=== PATIENT | female | born 1970 ===

== ENCOUNTER 2017-09-18 19:35 | Emergency (ER) | payer MEDICAID ==
[2017-09-18] MEDS ORDERED: Sodium Chloride 0.9% 1,000 ML IV STA (20:08)
--- NOTE | 2017-09-18 20:32 | ED PDOC ---
HPI: Abdomen Time Seen by Provider: 09/18/17 19:54 Chief Complaint (Nursing): Abdominal Pain Chief Complaint (Provider): Abdominal Pain History Per: Patient History/Exam Limitations: no limitations Onset/Duration Of Symptoms: Days (x2), Worse Since (onset), Other (constant) Location Of Pain/Discomfort: RLQ Additional Complaint(s): 47 year old female presents to the ED complaining of constant RLQ abdominal pain which started 2 days ago and is worsening since onset. Pain radiates to the rest of the abdomen and back and is similar to previous episodes. Patient reports she had multiple episodes of nonbloody diarrhea and has had multiple abdominal surgeries in the past. She denies nausea, vomiting, antibiotic use, recent travel, sick contacts, or urinary symptoms. 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) - Family History Family History: States: No Known Family Hx - Social History Current smoker - smoking cessation education provided: No Alcohol: None Drugs: Denies - Immunization History Hx Tetanus Toxoid Vaccination: No Hx Influenza Vaccination: Yes Hx Pneumococcal Vaccination: Yes - Home Medications Home Medications: Ambulatory Orders Medication Instructions Recorded Nortriptyline Hydrochloride 75 mg PO HS 10/25/12 [Nortriptyline] SUMAtriptan [Imitrex Tab] 100 mg PO PRN PRN 10/25/12 Topiramate 50 mg PO BID 10/25/12 Acetaminophen/Oxycodone Hydr 1 tab PO TID PRN #6 tab 01/15/14 [Percocet 325 mg-5 mg] Ibuprofen [Ibuprofen] 800 mg PO TID PRN 03/11/14 Lactulose [Generlac] 15 ml PO DAILY 03/11/14 Sumatriptan [Sumatriptan] 20 mg PO ASDIR 03/11/14 Topiramate [Topamax] 25 mg PO BID 03/11/14 Zolpidem Tartrate [Ambien] 10 mg PO HS 03/11/14 Ibuprofen [Motrin Tab] 800 mg PO TID PRN #30 tab 12/12/14 Acetaminophen [Tylenol Extra 1,000 mg PO Q6 PRN #100 tablet 09/18/17 Strength] Dicyclomine [Bentyl] 20 mg PO QID PRN #20 tab 09/18/17 - Allergies Allergies/Adverse Reactions: Allergies Allergy/AdvReac Type Severity Reaction Status Date / Time Iodine and Iodide Containing Allergy SHORTNESS Verified 09/18/17 19:47 Produc OF BREATH cat scan dye Allergy SHORTNESS Uncoded 11/12/13 17:01 OF BREATH Review of Systems ROS Statement: Except As Marked, All Systems Reviewed And Found Negative (as per HPI) Gastrointestinal: Positive for: Abdominal Pain (RLQ radiating to the rest of the abdomen and back), Diarrhea. Negative for: Nausea, Vomiting Genitourinary Female: Negative for: Dysuria, Hematuria Physical Exam - Reviewed Nursing Documentation Reviewed: Yes Vital Signs Reviewed: Yes - Physical Exam Appears: Positive for: Uncomfortable, In Acute Distress Head Exam: Positive for: ATRAUMATIC, NORMOCEPHALIC Skin: Positive for: Warm, Dry Eye Exam: Positive for: EOMI, PERRL ENT: Positive for: Other (dry mucus membranes) Neck: Positive for: Painless ROM, Supple Cardiovascular/Chest: Positive for: Regular Rate, Rhythm, Chest Non Tender. Negative for: Murmur Respiratory: Positive for: Normal Breath Sounds. Negative for: Respiratory Distress Gastrointestinal/Abdominal: Positive for: Tenderness (RLQ tenderness to palpation), Other (Pain seems out of proportion to exam). Negative for: Mass, Guarding, Rebound Back: Positive for: Normal Inspection. Negative for: L CVA Tenderness, R CVA Tenderness Extremity: Positive for: Normal ROM. Negative for: Deformity Lymphatic: Negative for: Adenopathy Neurologic/Psych: Positive for: Alert. Negative for: Motor/Sensory Deficits - Laboratory Results Result Diagrams: 09/18/17 20:40 09/18/17 20:40 - ECG O2 Sat by Pulse Oximetry: 97 (RA) Pulse Ox Interpretation: Normal Medical Decision Making Medical Decision Making: Initial Impression: Abdominal Pain. Differentials include but not limited to bowel obstruction, hernia, mesenteric ischemia, colitis, enteritis Initial Plan: CT abd/pelvis CMP Drug screen Lact acid Lipase ED urine ED urine dipstick CBC Partial thromboplastin Prothrombin Bentyl 20mg PO Sodium chloride 1000mL IV Toradol 30mg IV Tylenol 975mg PO Reviewed previous charts. In 2015, patient had multiple visits for abdominal pain and at that time, she was on chronic pain medications. Patient reports she does not take pain medications anymore. She had multiple admissions at that time for small bowel obstruction. 22:16 CT abd/pelvis FINDINGS: Limitations: This study is limited due to motion artifacts and lack of oral contrast. Lower thorax: Linear scar in the right middle lobe. Stable 3 mm oval peripheral nodule in the lateral aspect of the left lower lobe. Implantable device in the medial left breast. ABDOMEN: Liver: Normal. No mass. Gallbladder and bile ducts: There are cholecystectomy clips. Mild common bile duct dilatation, stable. Pancreas: Normal. No ductal dilation. Spleen: Normal. No splenomegaly. Adrenals: Normal. No mass. Kidneys and ureters: No hydronephrosis or calculus. Stomach and bowel: Anastomotic pavan in a loop of small bowel in the right lower quadrant. Fluid-filled small bowel loops. The distal small bowel loops are distended. Air- fluid levels in the right colon. Appendix: Non visualization of the appendix correlating with history of appendectomy. PELVIS: Bladder: The bladder is collapsed. No calculus. Reproductive: Lobular uterus with evidence of prior section. The ovaries are difficult to separate from the fluid-filled small bowel loops. ABDOMEN and PELVIS: Intraperitoneal space: Normal. No free air. No significant fluid collection. Bones/joints: No acute fracture. No dislocation. Soft tissues: Ventral hernia repair. Vasculature: Small atherosclerotic calcifications are noted in the aorta. Lymph nodes: Normal. No enlarged lymph nodes. IMPRESSION: 1. Fluid distended distal small bowel. It may be due to ileus. 2. 3 mm stable left lower lung nodule. 3. Cholecystectomy, small bowel resection and ventral hernia repair 22:24 Upon reevaluation, patient is feeling better. Patient initially declined Tylenol and Bentyl tablets because she thought it would upset her gastritis. Patient was explained that the medications tend to improve abdominal pain and don't worsen gastritis. Patient is now amenable to trying medications. She is already feeling better from IV fluids and IV Toradol. Scribe Attestation: Documented by Raphael Rodriguez acting as a scribe for Consuelo Norton MD. Provider Scribe Attestation: All medical record entries made by the Scribe were at my direction and personally dictated by me. I have reviewed the chart and agree that the record accurately reflects my personal performance of the history, physical exam, medical decision making, and the department course for this patient. I have also personally directed, reviewed, and agree with the discharge instructions and disposition. Disposition - Clinical Impression Clinical Impression: Abdominal pain - Disposition Referrals: Huseyin Kim MD [Primary Care Provider] - Khurram Weinberg [Staff Provider] - Disposition: Routine/Home Disposition Time: 22:20 Condition: IMPROVED Additional Instructions: ZOILA MUCHO LIQUIDOS Y COME BLANDITO COMIDOS VISITA DR GUERRA Y DR WEINBERG EN 1-2 BURNS A CHEQAR DE NUEVO MARICARMEN MEDICAMENTOS A RECETO POR DOLOR. Prescriptions: Acetaminophen [Tylenol Extra Strength] 1,000 mg PO Q6 PRN #100 tablet PRN Reason: FEVER OR PAIN Dicyclomine [Bentyl] 20 mg PO QID PRN #20 tab PRN Reason: abdominal pain Instructions: Acute Abdomen (Belly Pain), Adult (DC) Print Language: UKRAINIAN
[2017-09-18 20:51] LABS: BASO % 0.2 % (0.0-2.0); EOS % 0.7 % (0.0-4.0); HEMOGLOBIN 13.8 g/dL (12.0-16.0); INR 1.1 (0.9-1.2); LYMPH # 1.2 K/uL (1.0-4.3); LYMPH % 15.7 % (20.0-40.0); MEAN CORPUSCULAR HEMOGLOBIN 31.2 pg (27.0-31.0); MEAN CORPUSCULAR HGB CONC 33.2 g/dL (33.0-37.0); MEAN PLATELET VOLUME 9.1 fl (7.2-11.7); MONO # 0.5 K/uL (0.0-0.8); MONO % 6.5 % (0.0-10.0); NEUT # 5.7 K/uL (1.8-7.0); NEUT % 76.9 % (50.0-75.0); NRBC % 0.1 % (0.0-0.0); PARTIAL THROMBOPLASTIN TIME 30.5 Seconds (25.6-37.1); PROTHROMBIN TIME 11.9 Seconds (9.8-13.1); RBC 4.42 Mil/uL (3.80-5.20); RED CELL DISTRIBUTION WIDTH 12.9 % (11.5-14.5); WHITE BLOOD COUNT 7.3 K/uL (4.8-10.8)
[2017-09-18 20:56] LABS: ALB/GLOB RATIO 1.3 (1.0-2.1); ALBUMIN 4.5 g/dL (3.5-5.0); ALT/SGPT 55 U/L (9-52); AST/SGOT 128 U/L (14-36); BLOOD UREA NITROGEN 19 mg/dl (7-17); CALCIUM 9.2 mg/dL (8.4-10.2); GFR AFRICAN-AMERICAN > 60; GFR NON-AFRICAN AMERICAN > 60; LIPASE 123 U/L (23-300)
[2017-09-18 21:40] LABS: BARBITURATES, UR NEGATIVE (NEGATIVE); BENZODIAZEPINES, UR NEGATIVE (NEGATIVE); OPIATES, UR NEGATIVE (NEGATIVE); PHENCYCLIDINE, UR NEGATIVE (NEGATIVE)
[2017-09-18 23:58] VITALS: PULSE 77; RESP 18; TEMP 97.6
[2017-09-19 00:12] VITALS: BP 97/55
--- NOTE | 2017-09-19 11:14 | CT ---
PROCEDURE: CT Abdomen and Pelvis without contrast. HISTORY: abd pain h/o obstruction COMPARISON: 12/12/2014 TECHNIQUE: Contiguous axial images of the abdomen and pelvis. No IV or oral contrast given. Coronal and Sagittal reformats generated. Please note that due to lack of intravenous and oral contrast, evaluation of soft tissue structures and bowel is limited. Radiation dose: Total exam DLP = 690.17 mGy-cm. This CT exam was performed using one or more of the following dose reduction techniques: Automated exposure control, adjustment of the mA and/or kV according to patient size, and/or use of iterative reconstruction technique. FINDINGS: LOWER THORAX: 3 millimeter left lower lobe nodule. Mild bibasilar atelectatic changes noted. LIVER: Unremarkable. No gross lesion or ductal dilatation. GALLBLADDER AND BILE DUCTS: Gallbladder not seen. Surgical clips in the right upper quadrant. Minimal dilatation of the intrahepatic and extrahepatic bile ducts likely sequela of prior cholecystectomy. PANCREAS: Unremarkable. No mass. No ductal dilatation. SPLEEN: Unremarkable. No splenomegaly. ADRENALS: Unremarkable. KIDNEYS AND URETERS: Unremarkable. No stone or hydronephrosis. BLADDER: Near completely collapsed limiting evaluation. REPRODUCTIVE: Please note that evaluation of gynecologic organs is not optimal on CT imaging. APPENDIX: Not visualized. No CT evidence of acute appendicitis. BOWEL: No bowel obstruction. Enteric anastomosis in the pelvis. PERITONEUM: Unremarkable. No fluid collection. No free air. LYMPH NODES: Unremarkable. No enlarged lymph nodes. VASCULATURE: Unremarkable. No aortic aneurysm. BONES: No fracture or destructive lesion. OTHER FINDINGS: Calcifications noted in the right breast. Correlation with mammography recommended. Loop recorder noted in the anterior chest on the left. IMPRESSION: No bowel obstruction. Prior enteric anastomosis in the pelvis. Minimal dilatation of the distal small bowel. Please note that evaluation of bowel otherwise is limited due to lack of IV and oral contrast. Calcification noted in the right breast. Correlation with mammography recommended. 3 millimeter nodule in the left lower lung. 6-[address] should be obtained to evaluate for change in characteristics. Please note that this report is in general agreement with the preliminary report provided by [facility].
[2017-09-19 14:17] VITALS: O2SAT 97
== END 2017-09-19 00:20 | disposition home or self-care (01) ==
LOC: H.ER 19:35
DX: R10.31 Right lower quadrant pain (principal); R19.7 Diarrhea, unspecified; E78.00 Pure hypercholesterolemia, unspecified; K63.89 Other specified diseases of intestine; R91.1 Solitary pulmonary nodule; K29.70 Gastritis, unspecified, without bleeding
CPT/HCPCS: 74176; 80053; 80324; 80345; 80346; 80349; 80353; 80358; 80361; 81025; 83605; 83690; 83992; 85025; 85610; 85730; 96374; 99283; J1885; J7030

== ENCOUNTER 2017-10-20 19:13 | Emergency (ER) | payer MEDICAID ==
[2017-10-20 19:34] VITALS: BP 125/78; RESP 18
[2017-10-20] MEDS ORDERED: Sodium Chloride 0.9% 1,000 ML IV STA (19:55)
--- NOTE | 2017-10-20 20:00 | ED PDOC ---
HPI: Abdomen Time Seen by Provider: 10/20/17 19:41 Chief Complaint (Nursing): Abdominal Pain Chief Complaint (Provider): Abd pain History Per: Patient History/Exam Limitations: no limitations Onset/Duration Of Symptoms: Days (2 weeks) Additional Complaint(s): Pt. with abd pain diffuse. Ongoing for years. Had exacerbation 2 weeks ago. Seen by Rin 2 week ago for the pain and had neg CT. Here as pain still present. She tried bentyl with no relief. Also has diarrhea, nonbloody. No weakness, chest pain, dyspnea, back pain, dysuria. No leg pain. No new food or drinks. No nausea, vomit, diarrhea. Past Medical History Reviewed: Nursing Documentation, Vital Signs Vital Signs: Last Vital Signs Temp 98.4 F 10/20/17 19:29 Pulse 93 H 10/20/17 19:29 Resp 18 10/20/17 19:29 BP 125/78 10/20/17 19:29 Pulse Ox 98 10/20/17 20:43 - Medical History PMH: Gastritis, Hypercholesterolemia, Migraine, Obstructive Bowel Denies: Chronic Kidney Disease - Surgical History Surgical History: Appendectomy, Cholecystectomy, Hernia Repair, - Family History Family History: States: Unknown Family Hx - Living Arrangements Living Arrangements: With Family - Immunization History Hx Tetanus Toxoid Vaccination: No Hx Influenza Vaccination: Yes Hx Pneumococcal Vaccination: Yes - Home Medications Home Medications: Ambulatory Orders Medication Instructions Recorded Nortriptyline Hydrochloride 75 mg PO HS 10/25/12 [Nortriptyline] SUMAtriptan [Imitrex Tab] 100 mg PO PRN PRN 10/25/12 Topiramate 50 mg PO BID 10/25/12 Acetaminophen/Oxycodone Hydr 1 tab PO TID PRN #6 tab 01/15/14 [Percocet 325 mg-5 mg] Ibuprofen [Ibuprofen] 800 mg PO TID PRN 03/11/14 Lactulose [Generlac] 15 ml PO DAILY 03/11/14 Sumatriptan [Sumatriptan] 20 mg PO ASDIR 03/11/14 Topiramate [Topamax] 25 mg PO BID 03/11/14 Zolpidem Tartrate [Ambien] 10 mg PO HS 03/11/14 Ibuprofen [Motrin Tab] 800 mg PO TID PRN #30 tab 12/12/14 Acetaminophen [Tylenol Extra 1,000 mg PO Q6 PRN #100 tablet 09/18/17 Strength] Dicyclomine [Bentyl] 20 mg PO QID PRN #20 tab 09/18/17 Famotidine [Pepcid] 20 mg PO DAILY PRN #6 tab 10/20/17 Ibuprofen [Motrin] 600 mg PO TID 7 Days tab 10/20/17 - Allergies Allergies/Adverse Reactions: Allergies Allergy/AdvReac Type Severity Reaction Status Date / Time Iodine and Iodide Containing Allergy SHORTNESS Verified 09/18/17 19:47 Produc OF BREATH cat scan dye Allergy SHORTNESS Uncoded 11/12/13 17:01 OF BREATH Review of Systems ROS Statement: Except As Marked, All Systems Reviewed And Found Negative Gastrointestinal: Positive for: Abdominal Pain, Diarrhea Physical Exam - Reviewed Nursing Documentation Reviewed: Yes Vital Signs Reviewed: Yes - Physical Exam Appears: Positive for: Non-toxic, No Acute Distress Head Exam: Positive for: ATRAUMATIC, NORMAL INSPECTION, NORMOCEPHALIC Skin: Positive for: Normal Color, Warm, DRY Eye Exam: Positive for: EOMI, Normal appearance, PERRL ENT: Positive for: Normal ENT Inspection Neck: Positive for: Normal, Painless ROM Cardiovascular/Chest: Positive for: Regular Rate, Rhythm Respiratory: Positive for: CNT, Normal Breath Sounds Gastrointestinal/Abdominal: Positive for: Soft, Tenderness (mild; nontender on distraction) Back: Positive for: Normal Inspection. Negative for: L CVA Tenderness, R CVA Tenderness Extremity: Positive for: Normal ROM. Negative for: Tenderness, Pedal Edema Neurologic/Psych: Positive for: Alert, Oriented - Laboratory Results Interpretation Of Abn Labs: 3.5 k - ECG O2 Sat by Pulse Oximetry: 98 Pulse Ox Interpretation: Normal - Radiology X-Ray: Interpreted by Me, Viewed By Ar X-Ray Interpretation: No Acute Disease - Progress ED Course And Treament: 2000: Multiple visits to the ER for same. Last CT done recently with no acute findings except ileus possible. Pt. had CT at [facility] and pt. has report showing no acute findings. Will get obstructive series and basic blood work. 2103: Stable. AAOx3. FU with pcp. No acute findings. Tolerated PO. Ambualted with no issues. Pain free. Disposition - Clinical Impression Clinical Impression: Abdominal pain, Hypokalemia - Patient ED Disposition Is Patient to be Admitted: No Counseled Patient/Family Regarding: Studies Performed, Diagnosis, Need For Followup, Rx Given - Disposition Referrals: [facility] [Outside] - 10/22/17 Disposition: Routine/Home Disposition Time: 21:05 Condition: STABLE Additional Instructions: Return if not better in 3 days. Prescriptions: Famotidine [Pepcid] 20 mg PO DAILY PRN #6 tab PRN Reason: Pain Ibuprofen [Motrin] 600 mg PO TID 7 Days tab Instructions: Stomach Ache and Stomach Upset, Hypokalemia (DC) Print Language: CHADIAN
[2017-10-20 20:43] LABS: BASO % 0.4 % (0.0-2.0); EOS # 0.1 K/uL (0.0-0.7); EOS % 0.9 % (0.0-4.0); HEMOGLOBIN 12.8 g/dL (12.0-16.0); LYMPH # 1.5 K/uL (1.0-4.3); LYMPH % 13.7 % (20.0-40.0); MEAN CELL VOLUME 92.3 fl (81.0-99.0); MEAN CORPUSCULAR HEMOGLOBIN 30.5 pg (27.0-31.0); MEAN CORPUSCULAR HGB CONC 33.1 g/dL (33.0-37.0); MEAN PLATELET VOLUME 8.5 fl (7.2-11.7); MONO # 0.6 K/uL (0.0-0.8); NEUT # 8.9 K/uL (1.8-7.0); RBC 4.18 Mil/uL (3.80-5.20); RED CELL DISTRIBUTION WIDTH 12.7 % (11.5-14.5); WHITE BLOOD COUNT 11.1 K/uL (4.8-10.8)
[2017-10-20 20:52] LABS: ALB/GLOB RATIO 1.3 (1.0-2.1); ALBUMIN 4.1 g/dL (3.5-5.0); ALT/SGPT 52 U/L (9-52); AST/SGOT 20 U/L (14-36); BLOOD UREA NITROGEN 13 mg/dl (7-17); CALCIUM 9.2 mg/dL (8.4-10.2); GFR AFRICAN-AMERICAN > 60; GFR NON-AFRICAN AMERICAN > 60; LIPASE 382 U/L (23-300)
[2017-10-20] MEDS ORDERED: Potassium Chloride 20 mEq ER Tab PO ONE (21:06)
[2017-10-20 21:42] VITALS: PULSE 74; TEMP 97.7; O2SAT 99
--- NOTE | 2017-10-21 08:07 | RAD ---
Date of service: 10/20/2017 HISTORY: pain COMPARISON: No prior. FINDINGS: BOWEL: Normal. No obstruction. No free air. BONES: Normal. OTHER FINDINGS: Cholecystectomy clips. IMPRESSION: No active disease.
== END 2017-10-20 21:43 | disposition home or self-care (01) ==
LOC: H.ER 19:13
DX: R10.9 Unspecified abdominal pain (principal); E87.6 Hypokalemia
CPT/HCPCS: 74022; 80053; 81025; 83690; 85025; 96361; 96374; 99284; J1885; J7030

== ENCOUNTER 2017-10-27 16:48 | Emergency (ER) | payer MEDICAID ==
[2017-10-27 17:00] VITALS: O2SAT 100
[2017-10-27] MEDS ORDERED: Sodium Chloride 0.9% 1,000 ML IV STA (17:27)
--- NOTE | 2017-10-27 17:31 | ED PDOC ---
HPI: Abdomen Time Seen by Provider: 10/27/17 17:04 Chief Complaint (Nursing): Abdominal Pain Chief Complaint (Provider): Abd pain History Per: Patient Current Symptoms Are (Timing): Still Present Additional Complaint(s): Pt. with abd pain for 1 month. Diarrhea, nonbloody with it. Nausea, no vomit with it for 1 month. No back pain, dyspnea, weakness, headaches, dizziness. No leg pain. No fever. Seen here recently and had no findings. Was dc. Went to PCP Dr. Holbrook and sent to ER at [facility] where she had a ct and blood work. States ct and blood did not show anything wrong in her abd/pelvis. She has paperwork showing this. Pt. here as symptoms still present. Has had multiple ER visits for the same here and other places. No chest pain or dyspnea. No new food or drinks. No travel. Has not seen a specialist. Past Medical History Reviewed: Nursing Documentation, Vital Signs Vital Signs: Last Vital Signs Temp 97.9 F 10/27/17 16:55 Pulse 101 H 10/27/17 16:55 Resp 20 10/27/17 16:55 BP 93/62 L 10/27/17 16:55 Pulse Ox 100 10/27/17 20:11 - Medical History PMH: Gastritis, Gall Bladder Disease, Hypercholesterolemia, Hypothyroidism, Migraine, Obstructive Bowel Denies: Chronic Kidney Disease - Surgical History Surgical History: Appendectomy, Cholecystectomy, Hernia Repair, - Family History Family History: States: Unknown Family Hx - Immunization History Hx Tetanus Toxoid Vaccination: No Hx Influenza Vaccination: Yes Hx Pneumococcal Vaccination: Yes - Home Medications Home Medications: Ambulatory Orders Medication Instructions Recorded Nortriptyline Hydrochloride 75 mg PO HS 10/25/12 [Nortriptyline] SUMAtriptan [Imitrex Tab] 100 mg PO PRN PRN 10/25/12 Topiramate 50 mg PO BID 10/25/12 Acetaminophen/Oxycodone Hydr 1 tab PO TID PRN #6 tab 01/15/14 [Percocet 325 mg-5 mg] Ibuprofen [Ibuprofen] 800 mg PO TID PRN 03/11/14 Lactulose [Generlac] 15 ml PO DAILY 03/11/14 Sumatriptan [Sumatriptan] 20 mg PO ASDIR 03/11/14 Topiramate [Topamax] 25 mg PO BID 03/11/14 Zolpidem Tartrate [Ambien] 10 mg PO HS 03/11/14 Ibuprofen [Motrin Tab] 800 mg PO TID PRN #30 tab 12/12/14 Acetaminophen [Tylenol Extra 1,000 mg PO Q6 PRN #100 tablet 09/18/17 Strength] Dicyclomine [Bentyl] 20 mg PO QID PRN #20 tab 09/18/17 Famotidine [Pepcid] 20 mg PO DAILY PRN #6 tab 10/20/17 Ibuprofen [Motrin] 600 mg PO TID 7 Days tab 10/20/17 Dicyclomine [Dicyclomine HCl] 10 mg PO DAILY PRN 5 Days cap 10/27/17 Famotidine [Pepcid] 20 mg PO DAILY PRN #6 tab 10/27/17 - Allergies Allergies/Adverse Reactions: Allergies Allergy/AdvReac Type Severity Reaction Status Date / Time Iodine and Iodide Containing Allergy SHORTNESS Verified 09/18/17 19:47 Produc OF BREATH cat scan dye Allergy SHORTNESS Uncoded 11/12/13 17:01 OF BREATH Review of Systems ROS Statement: Except As Marked, All Systems Reviewed And Found Negative Gastrointestinal: Positive for: Nausea, Abdominal Pain, Diarrhea Physical Exam - Reviewed Nursing Documentation Reviewed: Yes Vital Signs Reviewed: Yes - Physical Exam Appears: Positive for: Non-toxic, No Acute Distress Head Exam: Positive for: ATRAUMATIC, NORMAL INSPECTION, NORMOCEPHALIC Skin: Positive for: Normal Color, Warm, DRY Eye Exam: Positive for: EOMI, Normal appearance, PERRL ENT: Positive for: Normal ENT Inspection Neck: Positive for: Normal, Painless ROM Cardiovascular/Chest: Positive for: Regular Rate, Rhythm Respiratory: Positive for: CNT, Normal Breath Sounds Gastrointestinal/Abdominal: Positive for: Normal Exam, Soft, Tenderness (mild diffuse; nontender on distraction) Back: Positive for: Normal Inspection. Negative for: L CVA Tenderness, R CVA Tenderness Extremity: Positive for: Normal ROM. Negative for: Tenderness, Pedal Edema Neurologic/Psych: Positive for: Alert, Oriented - Laboratory Results Result Diagrams: 10/27/17 17:55 10/27/17 17:55 Interpretation Of Abn Labs: elevated ast and alt - ECG O2 Sat by Pulse Oximetry: 100 Pulse Ox Interpretation: Normal - Progress ED Course And Treament: 2012: Stable. AAOx3. Pain free. Tolerated PO. Pt. with elevated liver enzymes. Needs to fu with GI for further evaluation. Here multiple visits and no acute findings. Liver enzymes are increasing. Disposition - Clinical Impression Clinical Impression: Abdominal discomfort, Elevated liver enzymes - Patient ED Disposition Is Patient to be Admitted: No Counseled Patient/Family Regarding: Studies Performed, Diagnosis, Need For Followup, Rx Given - Disposition Referrals: Red Anderson MD [Staff Provider] - 10/29/17 [facility] [Outside] - 10/29/17 Disposition: Routine/Home Disposition Time: 20:14 Condition: STABLE Additional Instructions: You have elevated liver enzymes. Make sure to see the specialist in 3 days. Return if not better in 3 days. Usted tiene enzimas hepticas elevadas. Asegrate de maria a al especialista en 3 d as. Devuelve si no mejor en 3 reyes. Prescriptions: Dicyclomine [Dicyclomine HCl] 10 mg PO DAILY PRN 5 Days cap PRN Reason: Diarrhea Famotidine [Pepcid] 20 mg PO DAILY PRN #6 tab PRN Reason: Pain Instructions: Stomach Ache and Stomach Upset Print Language: MACEDONIAN
[2017-10-27 18:01] LABS: BASO % 0.4 % (0.0-2.0); EOS # 0.1 K/uL (0.0-0.7); EOS % 1.6 % (0.0-4.0); HEMOGLOBIN 14.4 g/dL (12.0-16.0); LYMPH # 0.7 K/uL (1.0-4.3); LYMPH % 10.3 % (20.0-40.0); MEAN CELL VOLUME 92.4 fl (81.0-99.0); MEAN CORPUSCULAR HEMOGLOBIN 31.5 pg (27.0-31.0); MEAN CORPUSCULAR HGB CONC 34.1 g/dL (33.0-37.0); MEAN PLATELET VOLUME 9.4 fl (7.2-11.7); MONO # 0.8 K/uL (0.0-0.8); MONO % 11.1 % (0.0-10.0); NEUT # 5.2 K/uL (1.8-7.0); NEUT % 76.6 % (50.0-75.0); NRBC % 0.2 % (0.0-0.0); RBC 4.56 Mil/uL (3.80-5.20); RED CELL DISTRIBUTION WIDTH 12.9 % (11.5-14.5); WHITE BLOOD COUNT 6.8 K/uL (4.8-10.8)
[2017-10-27 19:06] LABS: ALB/GLOB RATIO 1.3 (1.0-2.1); ALBUMIN 4.4 g/dL (3.5-5.0); ALT/SGPT 654 U/L (9-52); AST/SGOT 235 U/L (14-36); BLOOD UREA NITROGEN 12 mg/dl (7-17); CALCIUM 9.5 mg/dL (8.4-10.2); GFR AFRICAN-AMERICAN > 60; GFR NON-AFRICAN AMERICAN > 60; LIPASE 162 U/L (23-300)
[2017-10-27 20:30] VITALS: BP 112/72; PULSE 88; RESP 18; TEMP 98.2
== END 2017-10-27 20:30 | disposition home or self-care (01) ==
LOC: H.ER 16:48
DX: R10.9 Unspecified abdominal pain (principal); R74.8 Abnormal levels of other serum enzymes; E03.9 Hypothyroidism, unspecified; E78.00 Pure hypercholesterolemia, unspecified
CPT/HCPCS: 80053; 81025; 83690; 85025; 96361; 96374; 96375; 99284; J2405; J7030